=== PATIENT | male | born 1975 | race Caucasian/White ===

== ENCOUNTER 2016-08-29 14:59 | Emergency (ER) | payer MEDICAID | END 2016-08-29 17:51 | disposition home or self-care (01) | DX: M25.561 Pain in right knee (principal) ==

== ENCOUNTER 2017-07-03 10:27 | Outpatient (CLI) | payer MEDICAID ==
[2017-07-03 13:02] LABS: BASOPHILS # (AUTO) 0.1 10^3/uL (0.0-0.1); BASOPHILS % (AUTO) 0.9 %; EOSINOPHILS # (AUTO) 0.3 10^3/uL (0.0-0.7); EOSINOPHILS % (AUTO) 4.4 %; HCT - HEMATOCRIT 46.9 % (42.0-52.0); HGB - HEMOGLOBIN 15.5 g/dL (14.0-18.0); LYMPHOCYTES % (AUTO) 33.1 %; MEAN CORPUSCULAR HEMOGLOBIN 25.5 pg (27.0-31.0); MEAN CORPUSCULAR HGB CONC 33.1 g/dL (32.0-36.0); MEAN CORPUSCULAR VOLUME 77.1 fL (80.0-94.0); MEAN PLATELET VOLUME 7.6 fL (7.4-11.4); MONOCYTES # (AUTO) 0.4 10^3/uL (0.0-1.0); MONOCYTES % (AUTO) 7.3 %; NEUTROPHILS # (AUTO) 3.3 10^3/uL (1.5-6.6); NEUTROPHILS % (AUTO) 54.3 %; RED BLOOD COUNT 6.09 10^6/uL (4.70-6.10); RED CELL DISTRIBUTION WIDTH 14.8 % (12.0-15.0); UNCORRECTED WHITE BLOOD COUNT 6.1 x10^3/uL; WHITE BLOOD COUNT 6.1 x10^3/uL (4.8-10.8)
[2017-07-03 13:28] LABS: ALBUMIN/GLOBULIN RATIO 1.7 (1.0-2.2); BILIRUBIN,TOTAL 0.7 mg/dL (0.2-1.0); BUN - BLOOD UREA NITROGEN 13 mg/dL (6-20); CALCIUM 9.7 mg/dL (8.5-10.3); CARBON DIOXIDE - CO2 27 mmol/L (21-32); CHLORIDE 102 mmol/L (101-111); CHOL/HDL RATIO 5.3 (<5.0); CHOLESTEROL 200 mg/dL; CREATININE 0.8 mg/dL (0.6-1.2); GFR - MDRD 105 (>89); GLUCOSE 101 mg/dL (70-100); HDL CHOLESTEROL 38 mg/dL; LDL/HDL RATIO 3.4 (<3.6); POTASSIUM 3.8 mmol/L (3.5-5.0); SODIUM 137 mmol/L (135-145); TRIGLYCERIDES 163 mg/dL; URIC ACID 6.8 mg/dL (2.6-7.2); VLDL CHOLESTEROL 33 mg/dL
== END 2017-07-03 10:28 | disposition home or self-care (01) ==
LOC: LAB.N 10:27
PROVIDERS: ATTEND Physician Assistant Medical
DX: F17.220 Nicotine dependence, chewing tobacco, uncomplicated (principal); F41.8 Other specified anxiety disorders; M10.9 Gout, unspecified
CPT/HCPCS: 36415; 80053; 80061; 84443; 84550; 85025

== ENCOUNTER 2018-01-28 08:25 | Emergency (ER) | payer MEDICAID ==
[2018-01-28 08:31] VITALS: BP 145/78
[2018-01-28] MEDS ORDERED: LIDOCAINE-EPINEPH-TETRACAINE 3 ML SYRINGE TOP STA (09:36)
--- NOTE | 2018-01-28 09:39 | ED Physician Documentation ---
History of Present Illness - Stated complaint Stated Complaint: MALE - Chief complaint Chief Complaint: General - Additonal information Additional information: hx from pt healthy 43 male developed a hemorrhoid after heavy lifting has been bleeding and producing jelly like clots otherwise well Review of Systems Cardiac: denies: Chest pain / pressure Respiratory: denies: Dyspnea GI: reports: Other (rectal pain). denies: Abdominal Pain PD PAST MEDICAL HISTORY - Past Medical History Cardiovascular: None Endocrine/Autoimmune: None GI: Hemorrhoids Psych: Anxiety Musculoskeletal: Gout - Past Surgical History Past Surgical History: Yes Ortho: Arthroscopic surgery - Present Medications Home Medications: Ambulatory Orders Medication Instructions Recorded Confirmed Docusate Sodium 250Mg Capsule 250 mg PO DAILY #30 capsule 01/28/18 [Colace 250Mg Capsule] Hydrocortisone/Pramoxine [Analpram 1 applic RC Q6H #8 cream.appl 01/28/18 Hc 2.5% Crm Singles] Lidocaine/Prilocaine 1 applic TP Q2H PRN #30 cream..g. 01/28/18 [Lidocaine-Prilocaine Cream] - Allergies Allergies/Adverse Reactions: Allergies Allergy/AdvReac Type Severity Reaction Status Date / Time erythromycin base Allergy Rash Verified 01/28/18 08:31 - Social History Does the pt smoke?: Yes Smoking Status: Current every day smoker Does the pt drink ETOH?: No Does the pt have substance abuse?: Yes - Immunizations Immunizations are current?: No - POLST Patient has POLST: No PD ED PE NORMAL - Vitals Vital signs reviewed: Yes - Cardiac Cardiac: RRR - Respiratory Respiratory: No respiratory distress, Clear bilaterally - Rectal Rectal: Other (mod size exterbnal hemorrhoid not thomboses - small clot within but appears to have spontaneously open and oozed some blood and clot) Results - Vitals Vitals: Vital Signs - 24 hr 01/28/18 08:29 Temperature 36.3 C L Heart Rate 74 Respiratory 16 Rate Blood Pressure 145/78 H O2 Saturation 100 Oxygen O2 Source Room air PD MEDICAL DECISION MAKING - Sepsis Event Vital Signs: Vital Signs - 24 hr 01/28/18 08:29 Temperature 36.3 C L Heart Rate 74 Respiratory 16 Rate Blood Pressure 145/78 H O2 Saturation 100 Oxygen O2 Source Room air Departure - Departure Disposition: 01 Home, Self Care Clinical Impression: Hemorrhoid Qualifiers: Hemorrhoid type: unspecified Qualified Code(s): K64.9 - Unspecified hemorrhoids Condition: Good Instructions: ED Hemorrhoids Prescriptions: Docusate Sodium 250Mg Capsule [Colace 250Mg Capsule] 250 mg PO DAILY #30 capsule Hydrocortisone/Pramoxine [Analpram Hc 2.5% Crm Singles] 1 applic RC Q6H #8 cream.appl Lidocaine/Prilocaine [Lidocaine-Prilocaine Cream] 1 applic TP Q2H PRN #30 cream..g. PRN Reason: hemorrhoid pain Forms: Activity restrictions
== END 2018-01-28 09:52 | disposition home or self-care (01) ==
LOC: ED 08:25
DX: K64.9 Unspecified hemorrhoids (principal); F17.200 Nicotine dependence, unspecified, uncomplicated
CPT/HCPCS: 99283

== ENCOUNTER 2018-04-15 09:25 | Outpatient (CLI) | payer MEDICAID | END 2018-04-15 09:26 | LOC: LAB.N 09:25 | PROVIDERS: ATTEND Physician Assistant Medical | DX: R36.1 Hematospermia (principal) | CPT/HCPCS: 36415; 84153 ==

== ENCOUNTER 2018-07-14 11:17 | Emergency (ER) | payer MEDICAID ==
--- NOTE | 2018-07-14 11:41 | ED Physician Documentation ---
History of Present Illness - Stated complaint Stated Complaint: ANXIETY,CHEST PX - Additonal information Additional information: hx from pt 43 male long standing hx anxiety inc anxiety of the last month associated sx such as CP SOA and generally poor feeling feels he made need some medication called PMD but given appt in the future and sx are severe no fever no cough no leg swelling no travel has taken benzo such as clonazepam in past Review of Systems Constitutional: denies: Fever, Chills Cardiac: reports: Chest pain / pressure Respiratory: reports: Dyspnea. denies: Cough GI: denies: Abdominal Pain, Nausea, Vomiting Musculoskeletal: denies: Extremity pain, Extremity swelling Immunocompromised: denies: Immunocompromised PD PAST MEDICAL HISTORY - Past Medical History Cardiovascular: None Endocrine/Autoimmune: None GI: Hemorrhoids Psych: Anxiety Musculoskeletal: Gout - Past Surgical History Past Surgical History: Yes Ortho: Arthroscopic surgery - Present Medications Home Medications: Ambulatory Orders Medication Instructions Recorded Confirmed Citalopram Hydrobromide 40 mg PO DAILY 07/14/18 07/14/18 [Citalopram HBr] Clonazepam 0.25 mg PO BID PRN #20 tab.rapdis 07/14/18 - Allergies Allergies/Adverse Reactions: Allergies Allergy/AdvReac Type Severity Reaction Status Date / Time erythromycin base Allergy Rash Verified 07/14/18 11:43 - Social History Does the pt smoke?: Yes Smoking Status: Current every day smoker Does the pt drink ETOH?: No Does the pt have substance abuse?: Yes - Immunizations Immunizations are current?: No - POLST Patient has POLST: No PD ED PE NORMAL - Vitals Vital signs reviewed: Yes - General General: Alert and oriented X 3 - HEENT HEENT: PERRL - Neck Neck: Supple, no meningeal sign - Cardiac Cardiac: RRR - Respiratory Respiratory: No respiratory distress, Clear bilaterally - Abdomen Abdomen: Non tender - Extremities Extremities: No deformity, No edema, No calf tenderness / cord - Neuro Neuro: Alert and oriented X 3 Results - Vitals Vitals: Vital Signs - 24 hr 07/14/18 07/14/18 11:20 12:25 Temperature 36.1 C L Heart Rate 76 83 Respiratory 20 16 Rate Blood Pressure 146/103 H 143/94 H O2 Saturation 99 96 Oxygen O2 Source Room air - EKG (time done) 1125 Rate: Rate (enter#) Rhythm: NSR [place]: Normal Intervals: Normal [place] QRS: Normal Ischemia: Other (isolated TWI III) - Labs Labs: Laboratory Tests 07/14/18 12:25 Troponin I < 0.04 - Rads (name of study) CXR Radiology: See rad report (NACPD) Departure - Departure Disposition: 01 Home, Self Care Clinical Impression: Anxiety Chest pain Qualifiers: Chest pain type: unspecified Qualified Code(s): R07.9 - Chest pain, unspecified Condition: Good Instructions: ED Chest Pain Atypical Unkn Cause, ED Stress React Follow-Up: Clifton Mcclendon PA-C [Primary Care Provider] - Prescriptions: Clonazepam 0.25 mg PO BID PRN #20 tab.rapdis PRN Reason: Anxiety Comments: The xray EKG and blood test for your heart were all fine
[2018-07-14] MEDS ORDERED: LORazepam 0.5 MG TABLET PO STA (12:10)
--- NOTE | 2018-07-14 13:00 | XRAY Report ---
Reason: cp soa Procedure Date: 07/14/2018 Accession Number: [id number] / [id number] Procedure: XR - Chest 2 View X-Ray CPT Code: 57841 FULL RESULT: EXAM: CHEST RADIOGRAPHY EXAM DATE: 07/14/2018 12:49 PM. CLINICAL HISTORY: Cp soa. COMPARISON: None. TECHNIQUE: 2 views. FINDINGS: Lungs/Pleura: No focal opacities evident. No pleural effusion. No pneumothorax. Normal volumes. Mediastinum: Heart and mediastinal contours are unremarkable. Other: None. IMPRESSION: No acute cardiopulmonary abnormalities detected. RADIA
[2018-07-14 13:45] VITALS: BP 129/110
== END 2018-07-14 13:45 | disposition home or self-care (01) ==
LOC: ED 11:17
DX: F41.9 Anxiety disorder, unspecified (principal); R07.9 Chest pain, unspecified; R03.0 Elevated blood-pressure reading, without diagnosis of hypertension; F17.200 Nicotine dependence, unspecified, uncomplicated
CPT/HCPCS: 36415; 71046; 84484; 93005; 99283; A9270

== ENCOUNTER 2018-10-15 17:24 | Emergency (ER) | payer MEDICAID ==
[2018-10-15 17:40] VITALS: BP 137/82
--- NOTE | 2018-10-15 18:18 | ED Physician Documentation ---
PD HPI SKIN - Stated complaint Stated Complaint: R FOOT PX - Chief complaint Chief Complaint: General - History obtained from History obtained from: Patient - History of Present Illness Timing - onset: How many days ago (4) Timing - duration: Days (4) Timing - details: Abrupt onset, Still present Location: RLE (dorsum foot and around front of ankle) Quality / character: Painful, Discolored Associated symptoms: No: Fever, Myalgias, N/V/D Contributing factors: Other (no notable injury). No: Recent illness Similar symptoms before: No diagnosis (has had similar episodes lasting 1 day to at most 2 days, then resolves with NSAIDs. This is longest episode he has had. Presumed gout in the past with exact diagnosis.) Recently seen: Not recently seen Review of Systems Constitutional: denies: Fever, Chills, Myalgias GI: denies: Abdominal Pain, Nausea, Vomiting Musculoskeletal: reports: Joint pain (dorsal lateral foot and some at anterior and lateral ankle.) Neurologic: denies: Focal weakness, Numbness PD PAST MEDICAL HISTORY - Past Medical History Cardiovascular: None Respiratory: None Neuro: None Endocrine/Autoimmune: None GI: Hemorrhoids : None HEENT: None Psych: Anxiety Musculoskeletal: Gout Derm: None - Past Surgical History Past Surgical History: Yes Ortho: Arthroscopic surgery - Present Medications Home Medications: Ambulatory Orders Medication Instructions Recorded Confirmed Citalopram Hydrobromide 40 mg PO DAILY 07/14/18 10/15/18 [Citalopram HBr] Dexamethasone [Decadron] 4 mg PO DAILY #5 tablet 10/15/18 Indomethacin 25 mg PO TID #20 capsule 10/15/18 Oxycodone HCl/Acetaminophen 1 - 2 each PO Q6H PRN #20 tablet 10/15/18 [Percocet 5-325 mg Tablet] - Allergies Allergies/Adverse Reactions: Allergies Allergy/AdvReac Type Severity Reaction Status Date / Time erythromycin base Allergy Rash Verified 10/15/18 17:40 - Social History Does the pt smoke?: Yes Smoking Status: Current every day smoker Does the pt drink ETOH?: No Does the pt have substance abuse?: Yes - Immunizations Immunizations are current?: No - POLST Patient has POLST: No PD ED PE NORMAL - Vitals Vital signs reviewed: Yes - General General: Alert and oriented X 3, Well developed/nourished, Other (appears in pain due to the foot/ankle. ) - Neck Neck: Supple, no meningeal sign, No adenopathy - Cardiac Cardiac: RRR, No murmur - Respiratory Respiratory: Clear bilaterally - Derm Derm: Normal color, Warm and dry - Extremities Extremities: Other (dorsal proximal foot and lateral aspect proximal foot and to the ankle with some redness and swelling. Not much of an effusion at the ankle. sensation normal, and the area is very tender. No skin sores seen. ) - Neuro Neuro: Alert and oriented X 3, No motor deficit, No sensory deficit Results - Vitals Vitals: Vital Signs - 24 hr 10/15/18 17:37 Temperature 36.7 C Heart Rate 91 Respiratory 20 Rate Blood Pressure 137/82 H O2 Saturation 98 Oxygen O2 Source Room air PD MEDICAL DECISION MAKING - ED course Complexity details: considered differential (presumed gout. ), d/w patient Departure - Departure Disposition: 01 Home, Self Care Clinical Impression: Pain, joint, ankle and foot Qualifiers: Laterality: right Qualified Code(s): M25.571 - Pain in right ankle and joints of right foot Acute gout Qualifiers: Gout site: foot Gout etiology: idiopathic Laterality: right Qualified Code(s): M10.071 - Idiopathic gout, right ankle and foot Condition: Stable Record reviewed to determine appropriate education?: Yes Instructions: ED Arthritis Gout Follow-Up: Clifton Mcclendon PA-C [Primary Care Provider] - Prescriptions: Dexamethasone [Decadron] 4 mg PO DAILY #5 tablet Indomethacin 25 mg PO TID #20 capsule Oxycodone HCl/Acetaminophen [Percocet 5-325 mg Tablet] 1 - 2 each PO Q6H PRN #20 tablet PRN Reason: pain Comments: I agree that the pain and symptoms do sound consistent with gout. For that we can use anti-inflammatories of both steroid all type (Decadron) and nonsteroidal type "(indomethacin). To that add Tylenol or Percocet as needed for pain. Recheck if not improving over the next 2-3 days. Stay well-hydrated. Discharge Date/Time: 10/15/18 18:59
[2018-10-15] MEDS ORDERED: DEXAMETHASONE 10 MG/ML VIAL PO STA (18:41)
[2018-10-15] MEDS ORDERED: INDOMETHACIN 25 MG CAPSULE PO STA (18:41)
[2018-10-15] MEDS ORDERED: oxyCODONE 5 MG TABLET PO STA (18:41)
[2018-10-15] MEDS ORDERED: CHERRY SYRUP 10 ML UDC PO ONE (18:41)
== END 2018-10-15 18:59 | disposition home or self-care (01) ==
LOC: ED 17:24
DX: M10.071 Idiopathic gout, right ankle and foot (principal); F17.200 Nicotine dependence, unspecified, uncomplicated
CPT/HCPCS: 99283; A9270

== ENCOUNTER 2018-10-24 10:12 | Emergency (ER) | payer MEDICAID ==
[2018-10-24 10:58] VITALS: BP 149/98
[2018-10-24] MEDS ORDERED: CHERRY SYRUP 10 ML UDC PO ONE (12:12)
[2018-10-24] MEDS ORDERED: DEXAMETHASONE 10 MG/ML VIAL PO STA (12:12)
--- NOTE | 2018-10-24 12:14 | ED Physician Documentation ---
History of Present Illness - Stated complaint Stated Complaint: RT ANKLE PX - Chief complaint Chief Complaint: Ext Problem - History obtained from History obtained from: Patient - History of Present Illness Timing: How many days ago (8) - Additonal information Additional information: 43-year-old male with a history of gout has been having a problem with his gout for the past month and over the past week he has had a persistent attack. He did come into the emergency department he was given some dexamethasone he took about 5 days worth as an outpatient he took some indomethacin and some Percocet. He did have some improvement and then over the last day this is worsened on him again he has no medications with the exception of some indomethacin. He has ma moody an appointment to see his primary care doctor in 3 days time. Review of Systems Constitutional: denies: Fever Eyes: denies: Decreased vision Ears: denies: Ear pain Nose: denies: Congestion Throat: denies: Sore throat Respiratory: denies: Cough GI: denies: Vomiting Musculoskeletal: reports: Extremity swelling, Pain with weight bearing PD PAST MEDICAL HISTORY - Past Medical History Cardiovascular: None Respiratory: None Neuro: None Endocrine/Autoimmune: None GI: Hemorrhoids : None HEENT: None Psych: Anxiety Musculoskeletal: Gout Derm: None - Past Surgical History Past Surgical History: Yes Ortho: Arthroscopic surgery - Present Medications Home Medications: Ambulatory Orders Medication Instructions Recorded Confirmed Citalopram Hydrobromide 40 mg PO DAILY 07/14/18 10/15/18 [Citalopram HBr] Dexamethasone [Decadron] 4 mg PO DAILY #5 tablet 10/15/18 Indomethacin 25 mg PO TID #20 capsule 10/15/18 Oxycodone HCl/Acetaminophen 1 - 2 each PO Q6H PRN #20 tablet 10/15/18 [Percocet 5-325 mg Tablet] Indomethacin 25 mg PO TID PRN #20 capsule 10/24/18 Oxycodone HCl/Acetaminophen 1 - 2 each PO Q6H PRN #14 tablet 10/24/18 [Percocet 5-325 mg Tablet] - Allergies Allergies/Adverse Reactions: Allergies Allergy/AdvReac Type Severity Reaction Status Date / Time erythromycin base Allergy Rash Verified 10/24/18 10:58 - Social History Does the pt smoke?: Yes Smoking Status: Current every day smoker Does the pt drink ETOH?: No Does the pt have substance abuse?: Yes - Immunizations Immunizations are current?: No - POLST Patient has POLST: No PD ED PE NORMAL - Vitals Vital signs reviewed: Yes (hypertensive ) - General General: Alert and oriented X 3, No acute distress, Well developed/nourished - HEENT HEENT: Atraumatic, Dentition benign - Respiratory Respiratory: No respiratory distress - Derm Derm: Normal color, Warm and dry, No rash - Extremities Extremities: No deformity, Other (There is swelling to the right ankle with tendeness consistent with gout ) - Neuro Neuro: Alert and oriented X 3, No motor deficit, No sensory deficit, Normal speech Eye Opening: Spontaneous Motor: Obeys Commands Verbal: Oriented GCS Score: 15 - Psych Psych: Normal mood, Normal affect Results - Vitals Vitals: Vital Signs - 24 hr 10/24/18 10:56 Temperature 36.7 C Heart Rate 82 Respiratory 18 Rate Blood Pressure 149/98 H O2 Saturation 100 Oxygen O2 Source Room air PD MEDICAL DECISION MAKING - ED course Complexity details: considered differential, d/w patient ED course: 43-year-old male with a history of gout is given a second dose of dexamethasone 10 mg orally and we will refill his medications until his appointment. Departure - Departure Disposition: 01 Home, Self Care Clinical Impression: Acute gout Qualifiers: Gout site: ankle Gout etiology: unspecified cause Laterality: right Qualified Code(s): M10.9 - Gout, unspecified Condition: Stable Instructions: ED Arthritis Gout, ED Diet Gout Follow-Up: Clifton Mcclendon PA-C [Primary Care Provider] - Prescriptions: Indomethacin 25 mg PO TID PRN #20 capsule PRN Reason: Pain Oxycodone HCl/Acetaminophen [Percocet 5-325 mg Tablet] 1 - 2 each PO Q6H PRN #14 tablet PRN Reason: pain
== END 2018-10-24 12:30 | disposition home or self-care (01) ==
LOC: ED 10:12
DX: M10.9 Gout, unspecified (principal); F17.200 Nicotine dependence, unspecified, uncomplicated
CPT/HCPCS: 99283; A9270

== ENCOUNTER 2018-11-20 16:46 | Emergency (ER) | payer MEDICAID ==
[2018-11-20] MEDS ORDERED: BUFFERED LIDOCAINE 10 ML SYRINGE SUBQ STA (17:23)
[2018-11-20 17:24] VITALS: BP 131/95
--- NOTE | 2018-11-20 17:24 | ED Physician Documentation ---
PD HPI LOWER EXT INJURY - Stated complaint Stated Complaint: RT LEG LAC - History obtained from History obtained from: Patient, Family - History of Present Illness PD HPI LOW EXT INJURY LOCATION: Right, Lower leg Type of injury: Laceration Where injury occurred: Home Timing - onset: Today Timing - duration: Minutes Timing - details: Abrupt onset, Gradual onset Improved by: Rest, Immobilization Worsened by: Moving, Palpating Associated symptoms: No: Weakness, Numbness, Tingling, Swelling, Discolored Contributing factors: No: Anticoagulated Similar symptoms before: Diagnosis (lacaeration) Recently seen: Emergency Dept (in ED for gout) - Additional information Additional information: 43-year-old male was mowing his lawn today with a walk behind mower with a guard up and something shot out from behind the mower and cut his right calf on the medial surface. Is been able to control bleeding with direct pressures comes into the emergency department now for suturing. Review of Systems Constitutional: denies: Fever, Chills Respiratory: denies: Cough GI: denies: Vomiting Skin: reports: Laceration (s). denies: Rash Musculoskeletal: reports: Extremity pain, Joint pain. denies: Neck pain, Back pain Neurologic: denies: Generalized weakness, Focal weakness, Numbness PD PAST MEDICAL HISTORY - Past Medical History Cardiovascular: None Respiratory: None Neuro: None Endocrine/Autoimmune: None GI: Hemorrhoids : None HEENT: None Psych: Anxiety Musculoskeletal: Gout Derm: None - Past Surgical History Past Surgical History: Yes Ortho: Arthroscopic surgery - Present Medications Home Medications: Ambulatory Orders Medication Instructions Recorded Confirmed Citalopram Hydrobromide 40 mg PO DAILY 07/14/18 10/15/18 [Citalopram HBr] Dexamethasone [Decadron] 4 mg PO DAILY #5 tablet 10/15/18 Indomethacin 25 mg PO TID #20 capsule 10/15/18 Oxycodone HCl/Acetaminophen 1 - 2 each PO Q6H PRN #20 tablet 10/15/18 [Percocet 5-325 mg Tablet] Indomethacin 25 mg PO TID PRN #20 capsule 10/24/18 Oxycodone HCl/Acetaminophen 1 - 2 each PO Q6H PRN #14 tablet 10/24/18 [Percocet 5-325 mg Tablet] - Allergies Allergies/Adverse Reactions: Allergies Allergy/AdvReac Type Severity Reaction Status Date / Time erythromycin base Allergy Rash Verified 11/20/18 17:25 - Social History Does the pt smoke?: Yes Smoking Status: Current every day smoker Does the pt drink ETOH?: No Does the pt have substance abuse?: Yes - Immunizations Immunizations are current?: No - POLST Patient has POLST: No PD ED PE NORMAL - Vitals Vital signs reviewed: Yes (tachy and hypertensive ) - General General: No acute distress, Well developed/nourished - HEENT HEENT: Atraumatic, PERRL, EOMI - Respiratory Respiratory: No respiratory distress - Derm Derm: Normal color, Warm and dry, No rash - Extremities Extremities: No deformity, No edema, Other (There is a 4cm L shaped flap laceration to the medial aspect of the right mid calf. Distal n/v is intact and the wound appears clean. ) - Neuro Neuro: Alert and oriented X 3, devops 2-12 intact, No motor deficit, No sensory deficit, Normal speech Eye Opening: Spontaneous Motor: Obeys Commands Verbal: Oriented GCS Score: 15 - Psych Psych: Normal mood, Normal affect Results - Vitals Vitals: Vital Signs - 24 hr 11/20/18 17:24 Temperature 37.0 C Heart Rate 103 H Respiratory 18 Rate Blood Pressure 131/95 H O2 Saturation 96 Oxygen O2 Source Room air Procedures - Laceration (location) right calf Length in cm: 4 Wound type: Curved, Flap, Clean Neurovascular status: Sensory intact, Motor intact, Vascular intact Anesthesia: Lidocaine 1%, With bicarb Wound Preparation: Hibiclens, Irrigated copiously NS, Wound explored, To the base Skin layer closure: Nylon, Interrupted, Size #-0 - enter number (4-0), Sutures - enter # (7) Other: Patient tolerated well, No complications, Neurovascular intact, Dressing applied, Tetanus booster given Complexity: Simple PD MEDICAL DECISION MAKING - ED course Complexity details: re-evaluated patient, considered differential, d/w patient, d/w family ED course: 43-year-old male with a laceration to the right medial is sutured. He is given a tetanus booster as well Departure - Departure Disposition: 01 Home, Self Care Clinical Impression: Laceration of calf Qualifiers: Encounter type: initial encounter Laterality: right Qualified Code(s): S81.811A - Laceration without foreign body, right lower leg, initial encounter Condition: Stable Instructions: ED Laceration Ext Sutr Stap Tape Follow-Up: Clifton Mcclendon PA-C [Primary Care Provider] - Comments: sutures should be removed in 7-10 days
[2018-11-20] MEDS ORDERED: TETANUS/DIPHTHERIA/PERTUSSIS 0.5 ML SYRINGE IM ONE (17:46)
== END 2018-11-20 18:03 | disposition home or self-care (01) ==
LOC: ED 16:46
DX: S81.811A Laceration without foreign body, right lower leg, initial encounter (principal); W26.9XXA Contact with unspecified sharp object(s), initial encounter; Y93.H9 Activity, other involving exterior property and land maintenance, building and construction; Y92.007 Garden or yard of unspecified non-institutional (private) residence as the place of occurrence of the external cause; F41.9 Anxiety disorder, unspecified; F17.200 Nicotine dependence, unspecified, uncomplicated
CPT/HCPCS: 12002; 90471; 99282

== ENCOUNTER 2019-05-18 10:12 | Emergency (ER) | payer MEDICAID ==
[2019-05-18] MEDS ORDERED: BUFFERED LIDOCAINE 10 ML SYRINGE SUBQ STA (12:14)
--- NOTE | 2019-05-18 12:15 | ED Physician Documentation ---
History of Present Illness - Stated complaint Stated Complaint: L ELBOW SWELLING - Chief complaint Chief Complaint: Ext Problem - History obtained from History obtained from: Patient - History of Present Illness Timing: Yesterday (44-year-old gentleman with history of gout presents with a 2- day history of increasingly painful swelling over the outside of the left elbow without fevers or chills. He is never had this before.) Review of Systems Constitutional: denies: Fever, Myalgias Cardiac: reports: Reviewed and negative Respiratory: reports: Dyspnea PD PAST MEDICAL HISTORY - Past Medical History Past Medical History: Yes Cardiovascular: None Respiratory: None Neuro: None Endocrine/Autoimmune: None GI: Hemorrhoids : None HEENT: None Psych: Anxiety Musculoskeletal: Gout Derm: None - Past Surgical History Past Surgical History: Yes Ortho: Arthroscopic surgery - Present Medications Home Medications: Ambulatory Orders Medication Instructions Recorded Confirmed Cephalexin [Keflex] 500 mg PO Q6H #28 capsule 05/18/19 Hydrocodone/Acetaminophen 1 - 2 each PO Q6H PRN #14 tablet 05/18/19 [Hydrocodon-Acetaminophen 5-325] - Allergies Allergies/Adverse Reactions: Allergies Allergy/AdvReac Type Severity Reaction Status Date / Time erythromycin base Allergy Rash Verified 05/18/19 10:56 - Social History Does the pt smoke?: Yes Smoking Status: Current every day smoker Does the pt drink ETOH?: No Does the pt have substance abuse?: Yes - Immunizations Immunizations are current?: No - POLST Patient has POLST: No PD ED PE NORMAL - Vitals Vital signs reviewed: Yes - General General: Alert and oriented X 3, No acute distress - Extremities Extremities: Other (He has a modest case of olecranon bursitis on the left with full range of motion of the elbow. There is some warmth over the left olecranon,) - Neuro Neuro: Alert and oriented X 3, Normal speech Results - Vitals Vitals: Vital Signs - 24 hr 05/18/19 10:51 Heart Rate 88 Respiratory 18 Rate Blood Pressure 127/104 H O2 Saturation 100 Oxygen O2 Source Room air Procedures - Abscess I&D (location) L elbow Preparation: Chlorhexadine, Lidocaine 1% Incision: Incised with scalpel, Loculations broken, Culture obtained. No: Purulent drainage (clearish about 5-10ml), Packed Other: Pt tolerated well, Dressing applied, Antibiotic prescribed Departure - Departure Disposition: Home, Self Care Clinical Impression: Olecranon bursitis, left elbow Condition: Good Record reviewed to determine appropriate education?: Yes Instructions: ED Bursitis Elbow Olecranon Prescriptions: Cephalexin [Keflex] 500 mg PO Q6H #28 capsule Hydrocodone/Acetaminophen [Hydrocodon-Acetaminophen 5-325] 1 - 2 each PO Q6H PRN #14 tablet PRN Reason: pain Comments: Call your doctor to arrange a follow-up appointment, make the next available appointment. In the interim, return anytime if worse or if new symptoms develop. We are performing a wound culture, the results should be done in 48-72 hours. If antibiotic change is necessary we will call you. Return if worse in the meantime, especially if you develop increased pain, fevers, cannot keep down the medication. Otherwise follow-up with your physician in approximately 2-3 days.
[2019-05-18] MEDS ORDERED: HYDROcod/ACETAM 5/325 MG TABLET PO STA (12:26)
[2019-05-18 12:42] VITALS: BP 128/90
== END 2019-05-18 12:40 | disposition home or self-care (01) ==
LOC: ED 10:12
DX: M70.22 Olecranon bursitis, left elbow (principal); F17.200 Nicotine dependence, unspecified, uncomplicated
CPT/HCPCS: 10061; 87070; 87205; 99282; 99283; A9270; 10060

== ENCOUNTER 2021-02-05 15:40 | Emergency (ER) | payer MEDICAID ==
[2021-02-05 15:56] VITALS: BP 141/96
[2021-02-05] MEDS ORDERED: HYDROcod/ACETAM 5/325 MG TABLET PO STA (16:25)
[2021-02-05] MEDS ORDERED: KETOROLAC 15 MG/ML VIAL IM STA (16:25)
[2021-02-05] MEDS ORDERED: COLCHICINE 0.6 MG TABLET PO STA (16:27)
--- NOTE | 2021-02-05 16:27 | ED Physician Documentation ---
PD HPI LOWER EXT INJURY - Stated complaint Stated Complaint: LT ANKLE/FOOT PX - Chief complaint Chief Complaint: Ext Problem - History obtained from History obtained from: Patient - Additional information Additional information: 46-year-old gentleman with history of intermittent gout in his ankles presents with atraumatic left ankle pain starting last night. No fevers or chills. It feels similar to prior gout. He is able to walk. Review of Systems Constitutional: reports: Reviewed and negative Eyes: reports: Reviewed and negative Ears: reports: Reviewed and negative Nose: reports: Reviewed and negative Throat: reports: Reviewed and negative Cardiac: reports: Reviewed and negative Respiratory: reports: Reviewed and negative PD PAST MEDICAL HISTORY - Past Medical History Past Medical History: Yes Cardiovascular: None Respiratory: None Neuro: None Endocrine/Autoimmune: None GI: Hemorrhoids : None HEENT: None Psych: Anxiety Musculoskeletal: Gout Derm: None - Past Surgical History Past Surgical History: Yes Ortho: Arthroscopic surgery - Present Medications Home Medications: Ambulatory Orders Medication Instructions Recorded Confirmed Hydrocodone/Acetaminophen 1 - 2 each PO Q6H PRN #14 tablet 05/18/19 [Hydrocodon-Acetaminophen 5-325] cephALEXin [Keflex] 500 mg PO Q6H #28 capsule 05/18/19 HYDROcod/ACETAM 5/325 [[place] 5/325] 1 - 2 tab PO Q6H PRN #10 tablet 02/05/21 Indomethacin [Indocin] 25 mg PO BIDWM #10 02/05/21 predniSONE [Deltasone] 20 mg PO [id number] #21 tab 02/05/21 - Allergies Allergies/Adverse Reactions: Allergies Allergy/AdvReac Type Severity Reaction Status Date / Time erythromycin base Allergy Rash Verified 02/05/21 15:55 - Social History Does the pt smoke?: Yes Smoking Status: Current every day smoker Does the pt drink ETOH?: No Does the pt have substance abuse?: Yes - Immunizations Immunizations are current?: No - POLST Patient has POLST: No PD ED PE NORMAL - Vitals Vital signs reviewed: Yes - General General: Alert and oriented X 3, No acute distress - Extremities Extremities: Other (Ankle is tender but not swollen or red. Significant pain with range of the left ankle.) - Neuro Neuro: Alert and oriented X 3, Normal speech Results - Vitals Vitals: Vital Signs - 24 hr 07/27/21 15:51 Temperature 37.1 C Heart Rate 122 H Respiratory 18 Rate Blood Pressure 141/96 H O2 Saturation 98 Oxygen O2 Source Room air PD MEDICAL DECISION MAKING - ED course ED course: I am prescribing a short course of short-acting opioid pain medication for this patient. I have reviewed the patients [employer] and no concerning findings were noted. I have discussed that the opioids are for short term therapy only, and will not be refilled from the ED. Departure - Departure Disposition: Home, Self Care Clinical Impression: Gout of left ankle Qualifiers: Gout etiology: unspecified cause Chronicity: acute Qualified Code(s): M10.9 - Gout, unspecified Condition: Good Record reviewed to determine appropriate education?: Yes Instructions: ED Diet Gout, ED Arthritis Gout Prescriptions: predniSONE [Deltasone] 20 mg PO [id number] #21 tab Indomethacin [Indocin] 25 mg PO BIDWM #10 HYDROcod/ACETAM 5/325 [[place] 5/325] 1 - 2 tab PO Q6H PRN #10 tablet PRN Reason: Pain Comments: Talk with your primary care physician about starting allopurinol to prevent further gout attacks. As discussed it cannot be started for about 6 weeks after the flare. Return for new or worsening symptoms. I am prescribing a short course of narcotic pain medication for you. These are potentially dangerous and addictive medications that should be used carefully. These medications may constipate you. Take an rowo-gtp-hmvcfag stool softener (docusate) twice daily with plenty of water while taking these medications. If you go 24 hours without a bowel movement, take gsaz-noe-qfszpqd miralax, per package instructions. Do not drink or drive while taking these medications. If you received narcotic or sedating medications while in the emergency department, do not drive for 24 hours. Store this medication in a safe, secure place and out of reach of children. It is a violation of federal law to give or sell this medication to another person or to use in a manner other than prescribed. The ED will not refill narcotic prescriptions, including prescriptions lost or stolen. To dispose of unwanted medications: 1. [facility] at [address] in [place] has a medication drop box. They accept prescription medications (in pill form) Thursday through Thursday 9:00 a.m. to 5:00 p.m. 2. The [facility] [employer] accepts prescription medications (in pill form only) for disposal year round. Call for more information. 3. Contact the [facility] for the next [facility] sponsored prescription drug collection event. , [phone], or [phone]; Note that many narcotic pain relievers also contain Tylenol/acetaminophen. Please ensure that your total dose of acetaminophen from all sources does not exceed 3 g (3000 mg) per day.
== END 2021-02-05 16:51 | disposition home or self-care (01) ==
LOC: ED 15:40
DX: M10.072 Idiopathic gout, left ankle and foot (principal); F17.200 Nicotine dependence, unspecified, uncomplicated
CPT/HCPCS: 96372; 99283; A9270

== ENCOUNTER 2021-04-04 08:00 | Outpatient (CLI) | payer MEDICAID | END 2021-04-04 23:59 | disposition home or self-care (01) | LOC: LAB.N 08:00 | PROVIDERS: ATTEND Physician Assistant Medical | DX: R39.9 Unspecified symptoms and signs involving the genitourinary system (principal); R30.0 Dysuria | CPT/HCPCS: 36415; 84153; 87086 ==

== ENCOUNTER 2022-07-09 08:00 | Outpatient (CLI) | payer MEDICAID ==
[2022-07-09 22:57] LABS: CHLAMYDIA TRACHOMATIS DNA NEGATIVE (NEGATIVE); NEISSERIA GONORRHOEAE DNA NEGATIVE (NEGATIVE)
== END 2022-07-09 23:59 | disposition home or self-care (01) ==
LOC: LAB.N 08:00
PROVIDERS: ATTEND Family Medicine
DX: N41.9 Inflammatory disease of prostate, unspecified (principal); R30.0 Dysuria
CPT/HCPCS: 87086; 87181; 87491; 87591; 87661

== ENCOUNTER 2022-11-19 07:03 | Emergency (ER) | payer MEDICAID ==
[2022-11-19 07:14] VITALS: BP 129/85
--- NOTE | 2022-11-19 07:28 | ED Physician Documentation ---
PD HPI LOWER EXT INJURY - Stated complaint Stated Complaint: RT FOOT PX - Chief complaint Chief Complaint: Ext Problem - History obtained from History obtained from: Patient - History of Present Illness PD HPI LOW EXT INJURY LOCATION: Right, Ankle, Foot Type of injury: No: Fall, Twist Where injury occurred: Home Timing - duration: Days (2) Timing - details: Gradual onset, Still present Improved by: Immobilization Worsened by: Moving, Palpating Associated symptoms: Swelling, Discolored (redness). No: Weakness, Numbness Similar symptoms before: Diagnosis (episodic gout about every 1-2 years.) Recently seen: Not recently seen Review of Systems Constitutional: denies: Fever, Chills Skin: denies: Lesions, Abrasion (s), Laceration (s) Neurologic: denies: Focal weakness, Numbness PD PAST MEDICAL HISTORY - Past Medical History Past Medical History: Yes Cardiovascular: None Respiratory: None Neuro: None Endocrine/Autoimmune: None GI: Hemorrhoids : None HEENT: None Psych: Anxiety, ADD/ADHD Musculoskeletal: Gout Derm: Eczema - Past Surgical History Past Surgical History: Yes Ortho: Arthroscopic surgery - Present Medications Home Medications: Ambulatory Orders Medication Instructions Recorded Confirmed Cariprazine HCl [Vraylar] 3 mg PO Q2D 11/19/22 11/19/22 Dextroamphetamine/Amphetamine 60 mg PO DAILY 11/19/22 11/19/22 [Adderall 20 mg Tablet] Indomethacin [Indocin] 25 mg PO BIDWM #20 cap 11/19/22 Propranolol HCl 20 - 40 mg PO Q8HR PRN 11/19/22 11/19/22 clonazePAM [Clonazepam] 1 mg PO BID PRN 11/19/22 11/19/22 oxyCODONE [Roxicodone] 5 mg PO Q4H PRN #15 tablet 11/19/22 - Allergies Allergies/Adverse Reactions: Allergies Allergy/AdvReac Type Severity Reaction Status Date / Time erythromycin base Allergy Rash Verified 11/19/22 07:11 - Social History Does the pt smoke?: No Smoking Status: Former smoker Does the pt drink ETOH?: No Does the pt have substance abuse?: Yes Substance Use and Type: CBD oil / Products - Immunizations Immunizations are current?: Yes - POLST Patient has POLST: No PD ED PE NORMAL - Vitals Vital signs reviewed: Yes - General General: Alert and oriented X 3, Well developed/nourished - Derm Derm: Warm and dry, Other (redness and swelling around dorsolateral foot and around ankle. Very tender. no skin sores to suggest nidus for infection. ) - Neuro Neuro: Alert and oriented X 3, No motor deficit, No sensory deficit, Normal speech Results - Vitals Vitals: Vital Signs - 24 hr 11/19/22 07:11 Temperature 36.3 C L Heart Rate 85 Respiratory 16 Rate Blood Pressure 129/85 H O2 Saturation 100 Oxygen O2 Source Room air PD Medical Decision Making - ED course Complexity details: reviewed old records, considered differential (The patient has onset and progression of pain and swelling in the foot and ankle consistent with prior gout episodes. No recent injury. No skin sores or lesions. He states it feels similar. No recent change in diet nor beer/alcohol use.), d/w patient ED course: Patient's symptoms feel similar to prior gout episodes and the exam is consistent with gout around the ankle and dorsal lateral foot. We will treat empirically as gout. Departure - Departure Disposition: 01 Home, Self Care Clinical Impression: Right foot pain Acute gout Qualifiers: Gout site: foot Gout etiology: idiopathic Laterality: right Qualified Code(s): M10.071 - Idiopathic gout, right ankle and foot Condition: Stable Record reviewed to determine appropriate education?: Yes Instructions: ED Arthritis Gout Prescriptions: Indomethacin [Indocin] 25 mg PO BIDWM #20 cap oxyCODONE [Roxicodone] 5 mg PO Q4H PRN #15 tablet PRN Reason: Pain Comments: This does look and sound like gout and it feels that way to you. Seems reasonable to treat it as prior episodes. I wrote prescription for the indomethacin to take twice daily with food for the next several days to week until this is well improved. Add Tylenol every 4-6 hours if needed for pain and then oxycodone every 4-6 hours if needed for worse pain in addition. Recheck if not improving well over the next several days. Activity as tolerated. I sent your prescriptions to [facility] pharmacy in [place]. I am prescribing a short course of narcotic pain medication for you. These are potentially dangerous and addictive medications that should be used carefully. These medications may constipate you. Take an ohaw-bvc-dbfnice stool softener such as docusate twice daily with plenty of water while taking these medications. If you go 24 hours without a bowel movement, take gost-lks-xallekn MiraLAX, per package instructions. Do not drink or drive while taking these medications. If you received narcotic or sedating medications while in the emergency department do not drive for 24 hours. Store this medication in a safe, secure place and out of reach of children. It is a violation of federal law to give or sell this medication to another person or to use in a manner other than prescribed. The ED will not refill narcotic prescriptions, including prescriptions lost or stolen. You can dispose of unwanted medications at the [facility] office or at several pharmacies such as [facility].
[2022-11-19] MEDS ORDERED: DEXAMETHASONE 10 MG/ML VIAL PO STA (07:36)
[2022-11-19] MEDS ORDERED: CHERRY SYRUP 10 ML UDC PO ONE (07:36)
[2022-11-19] MEDS ORDERED: ACETAMINOPHEN 500 MG TABLET PO STA (07:36)
[2022-11-19] MEDS ORDERED: oxyCODONE 5 MG TABLET PO STA (07:36)
[2022-11-19] MEDS ORDERED: INDOMETHACIN 25 MG CAPSULE PO STA (07:36)
== END 2022-11-19 08:11 | disposition home or self-care (01) ==
LOC: ED 07:03
DX: M10.071 Idiopathic gout, right ankle and foot (principal)
CPT/HCPCS: 99282; 99283; A9270

== ENCOUNTER 2022-11-26 21:42 | Emergency (ER) | payer MEDICAID ==
--- NOTE | 2022-11-26 23:05 | XRAY Report ---
PROCEDURE: Ankle 3 View RT INDICATIONS: pain TECHNIQUE: 3 views of the ankle were acquired. COMPARISON: None. FINDINGS: Bones: No fractures or dislocations. Ankle mortise is normally aligned. No suspicious bony lesions . Soft tissues: No tibiotalar joint effusion. There is mild periarticular soft tissue swelling. Achill es tendon appears normal. IMPRESSION: No acute bony abnormality. Reviewed by: Manfred Titus MD on 11/26/2022 11:03 PM PDT Approved by: Manfred Titus MD on 11/26/2022 11:03 PM PDT Station ID: [id number]
[2022-11-26] MEDS ORDERED: KETOROLAC 30 MG/ML VIAL IM STA (23:12)
--- NOTE | 2022-11-26 23:14 | ED Physician Documentation ---
History of Present Illness - Stated complaint Stated Complaint: RT ANKLE PX - Chief complaint Chief Complaint: Ext Problem - History obtained from History obtained from: Patient - Additonal information Additional information: 47-year-old man presents with persistent gout flare to the right ankle for the past week. He initially was prescribed indomethacin and Percocet and has taken it with some relief but still endorses some mild swelling, worse at night. Denies fever, injury. PD PAST MEDICAL HISTORY - Past Medical History Cardiovascular: None Respiratory: None Neuro: None Endocrine/Autoimmune: None GI: Hemorrhoids : None HEENT: None Psych: Anxiety, ADD/ADHD Musculoskeletal: Gout Derm: Eczema - Past Surgical History Past Surgical History: Yes Ortho: Arthroscopic surgery - Present Medications Home Medications: Ambulatory Orders Medication Instructions Recorded Confirmed Cariprazine HCl [Vraylar] 3 mg PO Q2D 11/19/22 11/19/22 Dextroamphetamine/Amphetamine 60 mg PO DAILY 11/19/22 11/19/22 [Adderall 20 mg Tablet] Indomethacin [Indocin] 25 mg PO BIDWM #20 cap 11/19/22 Propranolol HCl 20 - 40 mg PO Q8HR PRN 11/19/22 11/19/22 clonazePAM [Clonazepam] 1 mg PO BID PRN 11/19/22 11/19/22 Oxycodone HCl 10 mg PO Q6H PRN #15 tablet 11/21/22 Oxycodone HCl/Acetaminophen 1 each PO Q4H PRN #10 tablet 11/26/22 [Percocet 10-325 mg Tablet] Oxycodone HCl/Acetaminophen 1 each PO Q4H PRN #10 tablet 11/26/22 [Percocet 10-325 mg Tablet] predniSONE [Prednisone 21-TAB dose 60 mg PO QDAC 6 Days #21 tab 11/26/22 pack] - Allergies Allergies/Adverse Reactions: Allergies Allergy/AdvReac Type Severity Reaction Status Date / Time erythromycin base Allergy Rash Verified 11/19/22 07:11 - Social History Does the pt smoke?: No Smoking Status: Former smoker Does the pt drink ETOH?: No Does the pt have substance abuse?: Yes - Immunizations Immunizations are current?: Yes - POLST Patient has POLST: No PD ED PE NORMAL - Vitals Vital signs reviewed: Yes - General General: Alert and oriented X 3, No acute distress, Well developed/nourished - HEENT HEENT: Atraumatic, PERRL, EOMI - Derm Derm: Normal color, Warm and dry, No rash - Extremities Extremities: No deformity, Other (R ankle tender with rom. mild swelling compared to L. 2+ BL DP pulses) - Neuro Neuro: No motor deficit, No sensory deficit Results - Vitals Vitals: Vital Signs - 24 hr 11/26/22 22:28 Temperature 36.8 C Heart Rate 82 Respiratory 18 Rate Blood Pressure 156/100 H O2 Saturation 97 Oxygen O2 Source Room air PD Medical Decision Making - ED course ED course: 47-year-old male presents with gout flare refractory to indomethacin. ankle XR Without evidence of pathology according to my interpretation and outside radiologist. Prednisone provided as well as refill of Percocet. Advised him to follow-up with his primary care provider for possible referral to specialist. Return precautions given. Departure - Departure Disposition: 01 Home, Self Care Clinical Impression: Gout flare Condition: Good Instructions: Gout Attack Tx Prescriptions: Oxycodone HCl/Acetaminophen [Percocet 10-325 mg Tablet] 1 each PO Q4H PRN #10 tablet PRN Reason: Pain Oxycodone HCl/Acetaminophen [Percocet 10-325 mg Tablet] 1 each PO Q4H PRN #10 tablet PRN Reason: Pain predniSONE [Prednisone 21-TAB dose pack] 60 mg PO QDAC 6 Days #21 tab Comments: You are seen in the emergency department for gout flare. A prescription for pr ednisone and Percocet was sent to your pharmacy. Please return to the emergency department for new or worsening symptoms or other concerns. Follow-up with your primary care provider.
[2022-11-26 23:25] VITALS: BP 142/94
== END 2022-11-26 23:24 | disposition home or self-care (01) ==
LOC: ED 21:42
DX: M10.9 Gout, unspecified (principal); Z87.891 Personal history of nicotine dependence
CPT/HCPCS: 96372; 99283